=== PATIENT | female | born 1945 | race Caucasian/White ===

== ENCOUNTER 2017-08-31 08:53 | Day surgery (SDC) | payer OTHER ==
[2017-08-31] MEDS ORDERED: NS 1000 ML 1,000 ML ONE (09:21)
[2017-08-31] MEDS ORDERED: DIPRIVAN VIAL 20 ML ONE (11:09)
[2017-08-31 14:26] VITALS: BP 152/72
== END 2017-08-31 11:50 | disposition home or self-care (01) ==
LOC: SURG1 08:53
PROVIDERS: ATTEND Internal Medicine Gastroenterology
PROC: 0DJ08ZZ Inspection of Upper Intestinal Tract, Via Natural or Artificial Opening Endoscopic (ICD-10-PCS; principal; 2017-08-31 11:15)
PROC: 0DB68ZX Excision of Stomach, Via Natural or Artificial Opening Endoscopic, Diagnostic (ICD-10-PCS; principal; 2017-08-31 11:15)
PROC: 0DB88ZX Excision of Small Intestine, Via Natural or Artificial Opening Endoscopic, Diagnostic (ICD-10-PCS; principal; 2017-08-31 11:15)
DX: D50.8 Other iron deficiency anemias (principal); R10.11 Right upper quadrant pain; R10.12 Left upper quadrant pain; K44.9 Diaphragmatic hernia without obstruction or gangrene; K29.60 Other gastritis without bleeding
CPT/HCPCS: A4217; J3490